=== PATIENT | female | born 1945 | race Caucasian/White ===

== ENCOUNTER 2018-10-19 16:16 | Inpatient (IN) | payer MEDICARE, MEDICAID ==
[~2018-10-19] VITALS: Ht 149.9 cm; Wt 74.8 kg
[~2018-10-19 16:16] MED LIST: ALLO100T PO; ATOR20TA65 PO; CYAN1TAB52 SL; DONE5TAB33 PO; HYDR-3282 PO; OLME1TAB26 PO; VENL75CA55 PO; ativan PO
[2018-10-19] MEDS ORDERED: METHYLPREDNISOLONE SOD SUCC 125 MG/2 ML VIAL IV STA (16:52)
[2018-10-19] MEDS ORDERED: VANCOMYCIN 1 G PREMIX 200 ML IV ONE (17:00)
[2018-10-19] MEDS ORDERED: IPRATROPIUM/ALBUTEROL 0.5-3(2.5)MG/3ML NEB HHN ONE (17:00)
[2018-10-19] MEDS ORDERED: PIPERACILLIN/TAZ 3.375G PREMIX 50 ML IV ONE (17:00)
[2018-10-19] MEDS ORDERED: SODIUM CHLORIDE 0.9% 1000ML BAG (SEPSIS BOLUS) IV ONE (17:00)
[2018-10-19 17:31] LABS: BASOPHILS % 0.4 % (0.0-2.0); EOSINOPHILS % 0.9 % (0.0-5.0); HEMATOCRIT. 32.8 % (36.0-48.0); HEMOGLOBIN. 11.1 g/dL (12.0-16.0); LYMPHOCYTES % 35.7 % (20.0-50.0); MEAN CORPUSCULAR VOLUME 88.6 fL (81.0-99.0); MEAN PLATELET VOLUME 7.3 fl (7.4-10.4); MONOCYTES % 7.2 % (2.0-8.0); NEUTROPHILS % 55.8 % (40.0-76.0); PLATELET 396 x1000/uL (130-400); RED CELL DISTRIBUTION WIDTH 15.3 % (11.6-14.6)
[2018-10-19 17:33] LABS: CHLORIDE 113 mEq/L (98-107); PROTHROMBIN TIME 10.4 sec (9.6-11.0)
[2018-10-19] MEDS ORDERED: POTASSIUM CHLORIDE 20MEQ TABLET SR PO ONE (18:00)
[2018-10-19 21:58] VITALS: BP 90/58
[2018-10-19] MEDS ORDERED: ONDANSETRON HCL 4MG/2ML INJ IV PRN (23:30)
[2018-10-20] VITALS: BP 95/58
[2018-10-20] MEDS: TRAMADOL HCL/ACETAMINOPHEN 37.5/325MG TABLET PO PRN ×3 (00:14→11:28)
[2018-10-20] MEDS: LORAZEPAM 1MG TABLET PO PRN ×3 (01:04→21:48)
[2018-10-20] MEDS: DEXT 5%/0.45% NACL KCL 30MEQ/L 1,000 ML IV SCH ×2 (03:36→15:04)
[2018-10-20 04:00] VITALS: BP 89/63
[2018-10-20] MEDS: PIPERACILLIN/TAZ 2.25G PREMIX 50 ML IV SCH ×3 (04:38→20:56)
[2018-10-20 05:35] LABS: CHLORIDE 112 mEq/L (98-107)
[2018-10-20 05:45] LABS: TOTAL IRON BINDING CAPACITY 206 ug/dL (250-450)
[2018-10-20 05:47] LABS: LDL CHOLESTEROL 99 mg/dL (5-100); PHOSPHORUS 2.7 mg/dL (2.5-4.9)
[2018-10-20 05:49] LABS: HDL CHOLESTEROL 52 mg/dL (40-59)
[2018-10-20 05:55] LABS: HEMATOCRIT 31.2 % (36.0-48.0); HEMOGLOBIN 10.4 g/dL (12.0-16.0); MEAN CORPUSCULAR VOLUME 90.1 fL (81.0-99.0); PLATELET 352 x1000/uL (130-400); RED BLOOD CELL COUNT 3.46 mill/uL (4.2-5.4); RED CELL DISTRIBUTION WIDTH 15.5 % (11.6-14.6)
[2018-10-20 08:00] VITALS: BP 123/71
[2018-10-20] MEDS ORDERED: MAGNESIUM CITRATE 300ML SOLUTION PO PRN (09:00)
[2018-10-20] MEDS ORDERED: DOCUSATE SODIUM 100MG CAPSULE PO PRN (09:00)
[2018-10-20] MEDS: PREGABALIN 75MG CAPSULE PO SCH ×2 (10:41→16:18)
[2018-10-20] MEDS: AMLODIPINE 5MG TABLET PO SCH ×2 (10:42→20:53)
[2018-10-20 12:00] VITALS: BP 116/69
[2018-10-20 12:10] LABS: T4 FREE 1.12 ng/dL (0.76-1.46)
[2018-10-20 12:27] LABS: FOLIC ACID (FOLATE) SERUM 11.2 ng/mL (>5.38)
[2018-10-20] MEDS ORDERED: POTASSIUM CHLORIDE 20MEQ TABLET SR PO SCH (13:30)
[2018-10-20] MEDS: FOLIC ACID 1 MG, THIAMINE HCL 100 MG, MVI, ADULT NO.1 10 ML in DEXTROSE 5% WATER 1,000 ML IV SCH ×4 (14:51)
[2018-10-20] MEDS ORDERED: VANCOMYCIN 750 MG PREMIX 150 ML IV NR (15:00)
[2018-10-20 16:00] VITALS: BP 99/65
[2018-10-20] MEDS ORDERED: ENOXAPARIN 40MG/0.4ML SYR SUBCUT SCH (16:30)
[2018-10-20 20:00] VITALS: BP 103/66
[2018-10-20] MEDS: VENLAFAXINE HCL 37.5MG SR CAPSULE 24HR PO SCH (20:57)
[2018-10-20] MEDS: ATORVASTATIN CALCIUM 20MG TABLET PO SCH (20:57)
[2018-10-21] VITALS: BP 100/66
[2018-10-21 04:00] VITALS: BP 116/50
[2018-10-21 05:59] LABS: BASOPHILS % 0.8 % (0.0-2.0); EOSINOPHILS % 2.5 % (0.0-5.0); HEMOGLOBIN. 9.9 g/dL (12.0-16.0); LYMPHOCYTES % 35.1 % (20.0-50.0); MEAN CORPUSCULAR VOLUME 90.9 fL (81.0-99.0); MEAN PLATELET VOLUME 7.9 fl (7.4-10.4); MONOCYTES % 7.9 % (2.0-8.0); NEUTROPHILS % 53.7 % (40.0-76.0); PLATELET 309 x1000/uL (130-400); RED CELL DISTRIBUTION WIDTH 15.8 % (11.6-14.6)
[2018-10-21] MEDS: PIPERACILLIN/TAZ 2.25G PREMIX 50 ML IV SCH ×3 (06:23→21:03)
[2018-10-21] MEDS: DEXT 5%/0.45% NACL KCL 30MEQ/L 1,000 ML IV SCH ×2 (06:24→18:00)
[2018-10-21 08:00] VITALS: BP 110/65
[2018-10-21] MEDS ORDERED: ENOXAPARIN 40MG/0.4ML SYR SUBCUT SCH (09:00)
[2018-10-21] MEDS: PREGABALIN 75MG CAPSULE PO SCH ×2 (09:19→17:02)
[2018-10-21] MEDS: AMLODIPINE 5MG TABLET PO SCH ×2 (09:20→21:00)
[2018-10-21] MEDS: ACETAMINOPHEN 325MG TABLET PO PRN (09:21)
[2018-10-21 09:58] LABS: BG BASE EXCESS -9.9 mmol/L (-2.0-2.0); BG CARBOXYHEMOGLOBIN 0.4 % (0.5-1.5); BG DEOXYHEMOGLOBIN 4.6 % (0.0-5.0); BG FRACTION INSPIRED OXYGEN 21; BG HCO3 ACT 15.8 mmol/L (22.0-26.0); BG METHEMOGLOBIN 0.3 % (0.0-1.5); BG OXYGEN SATURATION 95.4 % (92.0-98.5); BG OXYHEMOGLOBIN 94.7 % (94.0-97.0); BG PCO2 33.7 mmHg (35.0-45.0); BG PH 7.288 (7.350-7.450); BG PO2 87.6 mmHg (75.0-100.0); BG SAMPLE SITE RIGHT RADIAL; BG TOTAL HEMOGLOBIN 10.4 g/dL (12.0-18.0); BG VENT MODE ROOM AIR
[2018-10-21 12:00] VITALS: BP 104/64
[2018-10-21] MEDS: CITRIC ACID/SODIUM CITRATE SOLN 30ML UDC PO SCH ×2 (12:50→17:06)
[2018-10-21] MEDS: TRAMADOL HCL/ACETAMINOPHEN 37.5/325MG TABLET PO PRN ×2 (13:00→23:05)
[2018-10-21] MEDS: FOLIC ACID 1 MG, THIAMINE HCL 100 MG, MVI, ADULT NO.1 10 ML in DEXTROSE 5% WATER 1,000 ML IV SCH ×4 (13:01)
[2018-10-21] MEDS ORDERED: VANCOMYCIN 750 MG PREMIX 150 ML IV SCH (14:00)
[2018-10-21 16:00] VITALS: BP 116/69
[2018-10-21] MEDS: ENOXAPARIN 30MG/0.3ML SYR SUBCUT SCH (17:02)
[2018-10-21] MEDS: LORAZEPAM 1MG TABLET PO PRN (17:02)
[2018-10-21] MEDS: SILVER SULFADIAZINE 1% CREAM 25GM TOP SCH (18:00)
[2018-10-21 20:50] VITALS: BP 101/68
[2018-10-21] MEDS: ATORVASTATIN CALCIUM 20MG TABLET PO SCH (21:03)
[2018-10-21] MEDS: VENLAFAXINE HCL 37.5MG SR CAPSULE 24HR PO SCH (21:03)
[2018-10-22] VITALS (7 sets, daily range): BP systolic 103–117; BP diastolic 53–66
[2018-10-22] MEDS: PIPERACILLIN/TAZ 2.25G PREMIX 50 ML IV SCH ×2 (05:10→15:35)
[2018-10-22] MEDS: AMLODIPINE 5MG TABLET PO SCH ×2 (08:06→21:18)
[2018-10-22 08:08] LABS: BASOPHILS % 0.6 % (0.0-2.0); HEMATOCRIT. 35.4 % (36.0-48.0); HEMOGLOBIN. 11.5 g/dL (12.0-16.0); LYMPHOCYTES % 34.3 % (20.0-50.0); MEAN CORPUSCULAR HEMOGLOBIN 29.6 pg (28.0-32.0); MEAN CORPUSCULAR VOLUME 91.4 fL (81.0-99.0); MEAN PLATELET VOLUME 7.8 fl (7.4-10.4); MONOCYTES % 6.7 % (2.0-8.0); NEUTROPHILS % 51.4 % (40.0-76.0); PLATELET 335 x1000/uL (130-400); RED BLOOD CELL COUNT 3.87 mill/uL (4.2-5.4); RED CELL DISTRIBUTION WIDTH 15.6 % (11.6-14.6)
[2018-10-22] MEDS: CITRIC ACID/SODIUM CITRATE SOLN 30ML UDC PO SCH ×3 (08:13→17:43)
[2018-10-22] MEDS: SILVER SULFADIAZINE 1% CREAM 25GM TOP SCH (08:13)
[2018-10-22] MEDS: ACETAMINOPHEN 325MG TABLET PO PRN ×2 (08:13→22:41)
[2018-10-22] MEDS: PREGABALIN 75MG CAPSULE PO SCH ×2 (08:13→17:42)
[2018-10-22 08:20] LABS: PHOSPHORUS 4.3 mg/dL (2.5-4.9)
[2018-10-22] MEDS: LORAZEPAM 1MG TABLET PO PRN ×2 (10:23→21:18)
[2018-10-22] MEDS: DEXT 5%/0.45% NACL KCL 30MEQ/L 1,000 ML IV SCH (12:40)
[2018-10-22] MEDS ORDERED: VANCOMYCIN 750 MG PREMIX 150 ML IV SCH (14:00)
[2018-10-22] MEDS: FOLIC ACID 1 MG, THIAMINE HCL 100 MG, MVI, ADULT NO.1 10 ML in DEXTROSE 5% WATER 1,000 ML IV SCH ×4 (14:09)
[2018-10-22] MEDS: ENOXAPARIN 30MG/0.3ML SYR SUBCUT SCH (15:35)
[2018-10-22] MEDS: TRAMADOL HCL/ACETAMINOPHEN 37.5/325MG TABLET PO PRN (17:43)
[2018-10-22] MEDS: VENLAFAXINE HCL 37.5MG SR CAPSULE 24HR PO SCH (21:18)
[2018-10-22] MEDS: ATORVASTATIN CALCIUM 20MG TABLET PO SCH (21:18)
[2018-10-23 07:07] LABS: ANTI-NUCLEAR ANTIBODIES DIRECT Negative (Negative); COMPLEMENT C3 121 mg/dL (82-167)
[2018-10-26 14:13] LABS: 25-HYDROXY VITAMIN D3 9.7 ng/mL (.)
== END 2018-10-22 22:50 | DRG 602 ==
LOC: ER 16:16 → 8WST 18:09 → EDBEDREQ 18:11 → EDBEDREQTM 18:11 → EDBEDREQSVC 18:11 → ENRESERV 20:35
PROVIDERS: ADMIT Internal Medicine; ATTEND Internal Medicine
DX: L03.317 Cellulitis of buttock (principal); N17.0 Acute kidney failure with tubular necrosis; L03.116 Cellulitis of left lower limb; E87.2 Acidosis; M62.82 Rhabdomyolysis; D64.9 Anemia, unspecified; E11.22 Type 2 diabetes mellitus with diabetic chronic kidney disease; E78.00 Pure hypercholesterolemia, unspecified; E78.5 Hyperlipidemia, unspecified; E87.6 Hypokalemia; F32.9 Major depressive disorder, single episode, unspecified; F41.1 Generalized anxiety disorder; G20 Parkinson's disease; E11.42 Type 2 diabetes mellitus with diabetic polyneuropathy; I13.10 Hypertensive heart and chronic kidney disease without heart failure, with stage 1 through stage 4 chronic kidney disease, or unspecified chronic kidney disease; M15.9 Polyosteoarthritis, unspecified; M48.02 Spinal stenosis, cervical region; I95.9 Hypotension, unspecified; R26.9 Unspecified abnormalities of gait and mobility; M47.896 Other spondylosis, lumbar region; M47.894 Other spondylosis, thoracic region; Z96.659 Presence of unspecified artificial knee joint; F41.9 Anxiety disorder, unspecified; M10.9 Gout, unspecified; X08.8XXA Exposure to other specified smoke, fire and flames, initial encounter; M48.061 Spinal stenosis, lumbar region without neurogenic claudication; N18.9 Chronic kidney disease, unspecified; T21.05XA Burn of unspecified degree of buttock, initial encounter; Z79.899 Other long term (current) drug therapy; Z82.49 Family history of ischemic heart disease and other diseases of the circulatory system; Z87.442 Personal history of urinary calculi; Y93.89 Activity, other specified; Y92.89 Other specified places as the place of occurrence of the external cause; Y99.8 Other external cause status; Z91.018 Allergy to other foods
CPT/HCPCS: 36415; 36600; 71045; 72128; 72131; 73502; 76770; 80048; 80061; 80076; 80202; 82248; 82306; 82375; 82550; 82607; 82746; 82805; 83036; 83540; 83550; 83605; 83735; 84100; 84145; 84439; 84443; 84481; 84484; 84550; 85027; 85651; 86038; 86160; 93005; 93306; 93971; 94640; 96365; 96366; 96375; 97162; 97166; 99291; J1650; J2405; J2543; J2930; J3370; J3411; J3480; J3490; J7030; J7040; J7070; J7620